=== PATIENT | female | born 1950 | race Caucasian/White ===

== ENCOUNTER → 2019-02-07 15:06 | Outpatient (CLI) | payer MEDICARE, SELFPAY ==
[2019-02-07 16:51] LABS: Alanine Aminotransferase 31 IU/L (<35); Albumin 4.8 g/dL (3.5-5.0); Albumin Globulin Ratio 1.8 (1.0-2.8); Alkaline Phosphatase 67 U/L (38-126); Aspartate Aminotransferase 33 IU/L (14-36); Bilirubin Total 0.3 mg/dL (0.2-1.3); Blood Urea Nitrogen 26 mg/dL (7-17); Calcium 10.6 mg/dL (8.4-10.2); Carbon Dioxide 26 mmol/L (22-32); Chloride 99 mmol/L (98-107); Estimated Glomerular Filt Rate 40.9 mL/min (>60); Globulin 2.6 g/dL (1.7-4.1); Glucose 142 mg/dL (80-110); HEMOLYSIS < 15 (0-50); Sodium 139 mmol/L (137-145); Total Protein 7.4 g/dL (6.3-8.2)
== END ==
PROVIDERS: Family Provider Nurse Practitioner; PCP Nurse Practitioner; Visit Provider Internal Medicine
DX: R94.4 Abnormal results of kidney function studies (principal)
CPT/HCPCS: 36415; 80053

== ENCOUNTER → 2019-07-03 06:13 | Outpatient (ROUT) | payer MEDICARE, SELFPAY ==
[2019-07-03 07:04] LABS: BUN Creatinine Ratio 18.2 (6-22); Blood Urea Nitrogen 24 mg/dL (7-17); Calcium 9.8 mg/dL (8.4-10.2); Carbon Dioxide 26 mmol/L (22-32); Chloride 101 mmol/L (98-107); Glucose 128 mg/dL (80-110); HEMOLYSIS < 15 (0-50); Sodium 137 mmol/L (137-145)
[2019-07-03 07:11] LABS: Hemoglobin A1C% w Est Avg Glu 6.4 % (4.0-6.0)
[2019-07-03 07:21] LABS: Creatinine Urine Random 107.1 mg/dL
[2019-07-03 07:24] LABS: Cholesterol 169 mg/dL (140-199); HDL Cholesterol 49 mg/dL (40-60); LDL Cholesterol Calculated 82 mg/dL (<100); Triglycerides 191 mg/dL (35-150)
[2019-07-03 07:26] LABS: Microalbumin Urine Random 1.4 mg/dL (0-1.6)
[2019-07-03 07:35] LABS: TSH w/ Reflex to FT4 2.44 uIU/mL (0.47-4.68)
== END ==
PROVIDERS: Family Provider Nurse Practitioner; PCP Nurse Practitioner; Visit Provider Internal Medicine
DX: I10 Essential (primary) hypertension (principal); E11.9 Type 2 diabetes mellitus without complications; E03.9 Hypothyroidism, unspecified
CPT/HCPCS: 36415; 80048; 80061; 82043; 82570; 83036; 84443

== ENCOUNTER → 2019-09-22 12:00 | Outpatient (CLI) | payer MEDICARE, SELFPAY ==
[2019-09-23 21:54] LABS: COVID19 Sendout Not Detected (Not Detect)
== END ==
PROVIDERS: Family Provider Nurse Practitioner; PCP Nurse Practitioner; Visit Provider Physician Assistant
DX: Z11.59 Encounter for screening for other viral diseases (principal)
CPT/HCPCS: 87635

== ENCOUNTER 2019-09-25 09:12 | Day surgery (SDC) | payer MEDICARE, SELFPAY ==
--- NOTE | 2019-09-25 07:16 | PM.PREOP ---
Pre-operative Note COVID-19 COVID-19 status: Negative Interval Note History & Physical reviewed/Exam performed by Physician: Yes Changes to H&P: No H&P completed within 30 days and has changed as indicated here:: Fasting glucose today 125.
--- NOTE | 2019-09-25 07:18 | P.OP_ITS ---
Operative Date/Time/Diagnoses Date of procedure: 09/25/19 Time of procedure: 10:45 Procedure & Clinicians Procedure: Preoperative diagnoses: 1. Right nuclear sclerotic cataract 2. Astigmatism which is to be corrected with a toric intraocular lens implant. 3. Diabetes. 4. Glaucoma 5. Morbid obesity. Postoperative diagnoses: 1. Cataract removal with phacoemulsification with toric posterior chamber intraocular lens implant placed. Procedure: Phacoemulsification with posterior chamber toric intraocular lens implant. Surgeon: Jennifer Stoddard MD Complications: None Specimen: None Implant: [id number] [place] 090 Blood loss: None Anesthesia: Retrobulbar with monitored standby Description of procedure: Patient presents with a complaint of decreased vision due to cataract which is affecting activities of daily living. She has had a complicated course due to irregular cornea and has had corneal consultation to keratoconus. This was negative. She wants to proceed with cataract surgeries that she is unable to do her current work to poor visual q uality both distance and near. She also has glaucoma takes drops and declines additional glaucoma surgery at this. The patient wants surgery to improve vision and astigmatism. A toric intra-ocular lens with distance target is chosen that she understands there still be variability in the results. The patient was taken to the operating room and proparacaine drops placed. Indelible ink sheth were placed at the 90 and 180 degree meridian. The patient was placed on the operating room table and given IV sedation. A retrobulbar block insert consisting of 6 cc of 2% xylocaine without epinephrine mixed half and half with 0.5% Marcaine with 1 cc of hyaluronidase added is placed between the medial and lateral 1/3 of the inferior orbital rim. The eye is manually massaged for 30 sec, prepped using Betadine solution, and draped in the usual sterile fashion. Temporal approach was made, a 1 mm side-port incision was made 90? from the proposed corneal wound. Phenylephrine 1.5% mixed with 1% xylocaine 0.2 cc was placed into the anterior chamber. Viscoat followed by Nainon was then placed. A 2.6 mm clear incision with a 2.6 mm blade was placed at the 170 degree meridian. A 360 degree capsulorrhexis style capsulotomy was then performed with a cystitome needle on a Healon. Hydrodelineation and hydrodissection were performed. The phacoemulsification unit is introduced, and sculpting used to groove the central lens. It is then removed in chopping mode. Epi nucleus is removed with epinuclear mode and irrigation aspiration was used to remove the peripheral cortex. The posterior capsule is polished. The intraocular lens is selected, inspected, power confirmed, and placed in the posterior chamber at the desired meridian. The pupil was not constricted. The wound was stromally hyd rated and tested for leaks, there was none and it was left sutureless. Vigamox 0.1 cc was placed into the anterior chamber. Kenalog 0.2 cc was placed in the superior subconjunctival space. A drop of antibiotic and was placed and the eye was patched and shielded. The patient was stable and returned to the recovery room in excellent condition. Dictated by: Jennifer Stoddard MD Copy to: [facility] Same procedure as scheduled: Yes
[2019-09-25 09:29] VITALS: BP 153/87; PULSE 80; RESP 18; TEMP 35.8; O2SAT 96; BMI 39.0
[2019-09-25] MEDS: CATARACT EYE COMPOUND (10 DROPS/SYRINGE) 3 DROPS EYE-OP (09:46)
[2019-09-25] MEDS: PROPARACAINE 0.5% OPHTH SOL 2 DROPS EYE-OP ×2 (09:46→10:33)
[2019-09-25 09:58] VITALS: BMI 39.0
[2019-09-25] MEDS: ERYTHROMYCIN OPHTH 1 GM OINT 1 APPLIC EYE-RIGHT (10:58)
[2019-09-25] MEDS: CHONDROIDTIN/SOD HYALURONATE 1.05 ML SYRINGE INTRAOCULA (10:58)
[2019-09-25] MEDS: HYALURONATE SODIUM 10 MG/ML SYRINGE INJ (10:59)
[2019-09-25] MEDS: MOXIFLOXACIN INJ 5 MG/ML VIAL EYE-OP (10:59)
[2019-09-25] MEDS: BALANCED SALT IRRIG SOLN NO.2 500 ML, EPINEPHrine 1 MG IRR (11:00)
[2019-09-25] MEDS: TRIAMCINOLONE 50 MG/5 ML VIAL INJ (11:00)
[2019-09-25] MEDS: PHENYLEPHRINE/LIDOCAINE VIAL (OR) 0.2 ML EYE-OP (11:00)
[2019-09-25] MEDS: LIDOCAINE 2% 4 ML, BUPIVACAINE 0.5% (PF) 4 ML, HYALURONIDASE 150 UNIT INJ (11:00)
[2019-09-25 11:25] VITALS: BP 123/74; PULSE 65; RESP 16; TEMP 35.9; O2SAT 95
--- NOTE | 2019-09-25 15:54 | SUR.PHASEII ---
1150-Pt dcd via wc in stable condition to curbside in good spirits and no c\o
== END 2019-09-25 11:50 | disposition home or self-care (01) ==
PROVIDERS: Family Provider Nurse Practitioner; PCP Nurse Practitioner; Referring Provider Ophthalmology; Visit Provider Ophthalmology
PROC: (CPT 66984; principal; 2019-09-25 10:45)
DX: H25.11 Age-related nuclear cataract, right eye (principal); H52.201 Unspecified astigmatism, right eye; H04.203 Unspecified epiphora, bilateral; E11.9 Type 2 diabetes mellitus without complications; H40.9 Unspecified glaucoma; E66.01 Morbid (severe) obesity due to excess calories; Z79.84 Long term (current) use of oral hypoglycemic drugs
CPT/HCPCS: 66984; J0171; J2250; J3010; J3301; J3470; V2787

== ENCOUNTER → 2019-10-06 14:38 | Outpatient (CLI) | payer MEDICARE, SELFPAY ==
[2019-10-07 11:16] LABS: COVID19 Sendout Not Detected (Not Detect)
== END ==
PROVIDERS: Family Provider Nurse Practitioner; PCP Nurse Practitioner; Visit Provider Nurse Practitioner
DX: Z11.59 Encounter for screening for other viral diseases (principal)
CPT/HCPCS: 87635

== ENCOUNTER 2019-10-09 09:18 | Day surgery (SDC) | payer MEDICARE, SELFPAY ==
--- NOTE | 2019-10-08 18:47 | PM.PREOP ---
Pre-operative Note COVID-19 COVID-19 status: Negative Interval Note History & Physical reviewed/Exam performed by Physician: Yes Changes to H&P: No H&P completed within 30 days and has changed as indicated here:: Fasting blood glucose checked and is 119.
--- NOTE | 2019-10-09 07:25 | PM.OP.1 ---
Operative Date/Time/Diagnoses Date of procedure: 10/09/19 Time of procedure: 10:45 Procedure & Clinicians Procedure: Preoperative diagnoses: 1. Significant left nuclear sclerotic cataract 2. Astigmatism which is to be corrected with a toric intraocular lens implant. 3. Diabetes without retinopathy 4. Uncontrolled glaucoma on medications. 5. Obesity Postoperative diagnoses: 1. Cataract removal with phacoemulsification with toric posterior chamber intraocular lens implant placed. Procedure: Phacoemulsification with posterior chamber toric intraocular lens implant. Surgeon: Jennifer Stoddard MD Complications: None Specimen: None Implant: [id number] [place] 090 Blood loss: None Anesthesia: Retrobulbar with monitored standby Description of procedure: Patient presents with a complaint of decreased vision due to cataract which is affecting activities of daily living. The patient wants surgery to improve vision and astigmatism as she is unable to see clearly enough to work or read. She has had successful right cataract surgery also with high astigmatism. She has also had preoperative corneal consultation without evidence keratoconus. She understands are still risk of residual prescription due to her unusual corneal shape. She understands extra precaution string COVID-19. The patient was taken to the operating room and proparacaine drops placed. Indelible ink sheth were placed at the 90 and 180 degree meridian. The patient was placed on the operating room table and given IV sedation. A retrobulbar block insert consisting of 6 cc of 2% xylocaine without epinephrine mixed half and half with 0.5% Marcaine with 1 cc of hyaluronidase added is placed between the medial and lateral 1/3 of the inferior orbital rim. The eye is manually massaged for 30 sec, prepped using Betadine solution, and draped in the usual sterile fashion. Temporal approach was made, a 1 mm side-port incision was made 90? from the proposed corneal wound. Phenylephrine 1.5% mixed with 1% xylocaine 0.2 cc was placed into the anterior chamber. Viscoat followed by Surya was then placed. A 2.6 mm clear incision with a 2.6 mm blade was placed at the 170 degree meridian. A 360 degree capsulorrhexis style capsulotomy was then performed with a cystitome needle on a Healon. Hydrodelineation and hydrodissection were performed. The phacoemulsification unit is introduced, and sculpting used to groove the central lens. It is then removed in chopping mode. Epi nucleus is removed with epinuclear mode and irrigation aspiration was used to remove the peripheral cortex. The posterior capsule is polished. The intraocular lens is selected, inspected, power confirmed, and placed in the posterior chamber at the desired meridian of 90?. The pupil was not constricted. The wound was stromally hydrated and tested for leaks, there was none and it was left sutureless. Vigamox 0.1 cc was placed into the anterior chamber. Kenalog 0.2 cc was placed in the superior subconjunctival space. A drop of antibiotic and was placed and the eye was patched and shielded. The patient was stable and returned to the recovery room in excellent condition. Dictated by: Jennifer Stoddard MD Copy to: [facility] Same procedure as scheduled: Yes
[2019-10-09] MEDS: PROPARACAINE 0.5% OPHTH SOL 2 DROPS EYE-OP (09:46)
[2019-10-09] MEDS: CATARACT EYE COMPOUND (10 DROPS/SYRINGE) 3 DROPS EYE-OP (09:46)
[2019-10-09 09:47] VITALS: BP 146/80; PULSE 62; RESP 16; TEMP 36.6; O2SAT 98
[2019-10-09] MEDS: MOXIFLOXACIN INJ 5 MG/ML VIAL EYE-OP (11:16)
[2019-10-09] MEDS: ERYTHROMYCIN OPHTH 1 GM OINT 1 APPLIC EYE-LEFT (11:16)
[2019-10-09] MEDS: CHONDROIDTIN/SOD HYALURONATE 1.05 ML SYRINGE INTRAOCULA (11:16)
[2019-10-09] MEDS: HYALURONATE SODIUM 10 MG/ML SYRINGE INJ (11:16)
[2019-10-09] MEDS: TRIAMCINOLONE 50 MG/5 ML VIAL INJ (11:17)
[2019-10-09] MEDS: PHENYLEPHRINE/LIDOCAINE VIAL (OR) 0.2 ML EYE-OP (11:17)
[2019-10-09] MEDS: BALANCED SALT IRRIG SOLN NO.2 500 ML, EPINEPHrine 1 MG IRR (11:18)
[2019-10-09] MEDS: LIDOCAINE 2% 4 ML, BUPIVACAINE 0.5% (PF) 4 ML, HYALURONIDASE 150 UNIT INJ (11:19)
[2019-10-09 11:45] VITALS: BP 150/74; PULSE 66; RESP 17; TEMP 36; O2SAT 97
== END 2019-10-09 11:59 | disposition home or self-care (01) ==
PROVIDERS: Family Provider Nurse Practitioner; PCP Nurse Practitioner; Referring Provider Nurse Practitioner; Visit Provider Ophthalmology
PROC: (CPT 66984; principal; 2019-10-09 10:45)
DX: H25.12 Age-related nuclear cataract, left eye (principal); H52.202 Unspecified astigmatism, left eye; E11.9 Type 2 diabetes mellitus without complications; H40.9 Unspecified glaucoma; E66.9 Obesity, unspecified
CPT/HCPCS: 66984; J0171; J2704; J3301; J3470; V2787

== ENCOUNTER → 2022-08-04 13:51 | Outpatient (CLI) | payer MEDICARE, SELFPAY ==
--- NOTE | 2022-08-04 | DI.RAD.S_ITS ---
PROCEDURE: XR CHEST 2V INDICATIONS: Cough, unspecified TECHNIQUE: 2 views of the chest were acquired. COMPARISON: [facility], , CHEST 1 VIEW, 05/17/2015, 17:32. FINDINGS: Surgical changes and devices: None. Lungs and pleura: Lungs are clear. No pleural effusions or pneumothorax. Mediastinum: Mediastinal contours are normal. Heart size is normal. Bones and chest wall: No suspicious bony abnormalities. Soft tissues appear unremarkable. IMPRESSION: No acute cardiopulmonary findings Approved by: Drew Marvin M.D. on 08/04/2022 at 17:40
== END ==
PROVIDERS: Family Provider Nurse Practitioner; PCP Internal Medicine; Referring Provider Internal Medicine; Visit Provider Internal Medicine
DX: R05.9 Cough, unspecified (principal)
CPT/HCPCS: 71046

== ENCOUNTER → 2022-12-07 11:10 | Outpatient (CLI) | payer MEDICARE, SELFPAY ==
--- NOTE | 2022-12-07 | DI.MG.S_ITS ---
BILATERAL DIGITAL SCREENING MAMMOGRAM 3D/2D WITH CAD: 12/07/2022 CLINICAL: Routine screening. Comparison is made to exams dated: 09/08/2014 mammogram and 06/13/2012 mammogram - [facility]. There are scattered areas of fibroglandular density in both breasts (category b / 25%-50% glandular tissue). Current study was also evaluated with a Computer Aided Detection (CAD) system. No significant masses, calcifications, or other findings are seen in either breast. There has been no significant interval change. IMPRESSION: NEGATIVE There is no mammographic evidence of malignancy. A 1 year screening mammogram is recommended. Based on the Tyrer Cuzick model (a risk assessment model) the patient's lifetime risk is 4.6% and her 10 year risk is 3.1%. According to the ACR, ACS, and NCCN guidelines, an annual breast MRI exam along with mammogram is recommended if the patient's lifetime risk is 20% or greater. This exam was interpreted at Station ID: [id number]. NOTE: For mammograms, a report in lay terms will be sent to the patient. Approximately 15% of breast malignancies will not be visualized mammographically. In the management of a palpable breast mass, a negative mammogram must not discourage biopsy of a clinically suspicious lesion. Electronically Signed By: Shai donahue/lily:12/07/2022 17:40:04 letter sent: Normal Exam ACR BI-RADS Category 1: Negative 3341F
== END ==
PROVIDERS: Family Provider Nurse Practitioner; PCP Internal Medicine; Referring Provider Internal Medicine; Visit Provider Internal Medicine
DX: Z12.31 Encounter for screening mammogram for malignant neoplasm of breast (principal)
CPT/HCPCS: 77063; 77067

== ENCOUNTER → 2022-12-17 10:45 | Outpatient (CLI) | payer MEDICARE, SELFPAY ==
[2022-12-17 11:09] LABS: Add Manual Diff / Slide Review NO; Basophils Absolute Auto 0 /uL (0-100); Basophils Percent Auto 0.7 % (0-2); Eosinophils Absolute Auto 200 /uL (0-450); Eosinophils Percent Auto 3.5 % (2-4); Hematocrit 35.5 % (36-46); Lymphocytes Absolute Auto 1100 /uL (1100-4500); Lymphocytes Percent Auto 16.5 % (25-40); Mean Corpuscular HGB Conc 33.7 % (30-36); Mean Corpuscular Hemoglobin 30.2 PG (26-34); Mean Corpuscular Volume 89.6 fL (80-100); Monocytes Absolute Auto 600 /uL (0-900); Monocytes Percent Auto 8.4 % (3-14); Neutrophils Absolute Auto 4900 /uL (1500-7000); Neutrophils Percent Auto 70.9 % (50-75); Platelet Count 256 X10^3/uL (150-400); Red Blood Cell Count 3.97 X10^6/uL (4.0-5.2); Red Cell Distribution Width 14.4 % (11.6-14.8); White Blood Cell Count 6.9 X10^3/uL (4.5-11.0)
[2022-12-17 11:31] LABS: BUN Creatinine Ratio 17.1 (6-22); Blood Urea Nitrogen 20 mg/dL (7-17); Calcium 10.4 mg/dL (8.4-10.2); Carbon Dioxide 25 mmol/L (22-32); Chloride 99 mmol/L (98-107); Estimated Glomerular Filt Rate 50 mL/min (>60); Glucose 144 mg/dL (80-110); HEMOLYSIS 38 (0-50); Potassium 4.5 mmol/L (3.4-5.1); Sodium 136 mmol/L (137-145)
[2022-12-17 13:00] LABS: Appearance Urine UA CLEAR; Bilirubin Urine UA NEGATIVE (NEGATIVE); Color Urine UA YELLOW; Glucose Urine UA NEGATIVE (Negative); Ketones Urine UA NEGATIVE (NEGATIVE); Leukocyte Esterase Urine UA NEGATIVE (NEGATIVE); Nitrite Urine UA NEGATIVE (Negative); Occult Blood Urine UA NEGATIVE (Negative); Protein Urine UA NEGATIVE (Negative); Urobilinogen Urine UA 0.2 E.U./dL (0.2)
[2022-12-17 13:02] LABS: pH Urine UA 6.5 (4.5-8.0)
[2022-12-17 13:14] LABS: Bacteria Urine None Seen; Culture Indicated Urine Cult Not Indicated; RBC Urine None Seen (0-5/HPF); Squamous Epithelial Cell Urine 0-1 /HPF (0-5/HPF); WBC Urine None Seen (0-5/HPF)
== END ==
PROVIDERS: Family Provider Nurse Practitioner; PCP Internal Medicine; Referring Provider Orthopaedic Surgery; Visit Provider Orthopaedic Surgery
DX: Z01.818 Encounter for other preprocedural examination (principal); N39.0 Urinary tract infection, site not specified; Z01.812 Encounter for preprocedural laboratory examination
CPT/HCPCS: 36415; 80048; 81001; 85025; 93005

== ENCOUNTER → 2022-12-21 14:22 | Outpatient (CLI) | payer MEDICARE, SELFPAY ==
--- NOTE | 2022-12-21 | DI.CT.S_ITS ---
PROCEDURE: CT UE LT WO CON INDICATIONS: PRIMARY OSTEOARTHRITIS - left TECHNIQUE: Noncontrast 1-1.5 mm thick sections acquired from the acromioclavicular joint to the inferior scapula, with coronal and sagittal reformatting. COMPARISON: None. FINDINGS: Image quality: Excellent. There is severe osteoarthritic degenerative change involving the patient's left glenohumeral joint. There is a small loose body in the superior shoulder joint. There is moderate AC joint degenerative change present. No acute osseous abnormality is seen. A moderate size shoulder joint effusion is present. There are some 1-2 millimeter indeterminate pulmonary nodules within the visualized portions of the patient's left lung. If the patient has a history of smoking a CT of the chest without contrast may be of further clinical value. Impression: 1. Severe osteoarthritic type degenerative change involving the left glenohumeral joint. 2. Small loose body in the is superior glenohumeral joint. 3. Moderate AC joint degenerative change. 4. Moderate shoulder joint effusion. 5. Two small 1-2 millimeter indeterminate pulmonary nodule within the patient's left lung. If the patient has a history of smoking a noncontrast chest CT may be of further clinical value. Dictated by: Geronimo Malone M.D. on 12/21/2022 at 15:54 Approved by: Geronimo Malone M.D. on 12/21/2022 at 16:00
== END ==
PROVIDERS: Family Provider Nurse Practitioner; PCP Internal Medicine; Referring Provider Orthopaedic Surgery; Visit Provider Orthopaedic Surgery
DX: M19.012 Primary osteoarthritis, left shoulder (principal); M24.012 Loose body in left shoulder; M25.412 Effusion, left shoulder; R91.8 Other nonspecific abnormal finding of lung field
CPT/HCPCS: 73200

== ENCOUNTER 2023-02-08 06:27 | Inpatient (IN) | payer MEDICARE, SELFPAY ==
[2023-01-31 09:31] VITALS: BMI 39.4
[2023-02-08] VITALS (8 sets, daily range): BP systolic 119–149; BP diastolic 73–78; PULSE 72–85; RESP 15–22; TEMP 36.1–36.4; O2SAT 92–100; BMI 39.4
--- NOTE | 2023-02-08 07:22 | PM.HP.1 ---
History of Present Illness History of Present Illness Date Patient Seen: 02/08/23 Time Patient Seen: 07:22 Chief complaint: INPT Narrative: This is a pleasant 72-year-old female here for left shoulder glenohumeral arthritis. Since I last saw her on 12/15 she has had worsening of her pain. More difficulty sleeping. Denies any distal numbness or tingling. No changes in her health status. [facility] Medical History (Updated 01/31/23 @ 10:18 by Purnima Adkins RN) Eczema Osteoarthritis Kidney disease Diabetes (2013) Acid reflux HLD (hyperlipidemia) HTN (hypertension) Dry eyes Seasonal allergies Neuropathy Surgical History (Updated 01/31/23 @ 10:18 by Purnima Adkins RN) Hx of hemorrhoidectomy (2001) S/P left unicompartmental knee replacement (2010) History of total right hip replacement (2007) Hx of tonsillectomy Hx of prior ablation treatment Hx of dilation and curettage History of Hx of bilateral cataract extraction Social History household members: spouse Smoking Status: Former smoker alcohol intake: never Meds Home Medications and Allergies Home Medications Medication Instructions Recorded Confirmed Type cetirizine 10 mg tablet 10 mg PO PRN PRN Seasonal 06/29/11 02/08/23 History allergies ##0 levothyroxine 25 mcg tablet 25 mcg PO QAM #90 tabs 07/21/16 02/08/23 Rx metoprolol succinate 50 mg 50 mg PO QDAY #90 tabs 07/21/16 02/08/23 Rx tablet,extended release 24 hr (Toprol XL) pseudoephedrine HCl 120 mg 120 mg PO Q12HP PRN Allergy 07/21/16 01/31/23 History tablet,extended release (Sudafed Symptoms ##0 12 Hour) glipizide 5 mg tablet 5 mg PO DAILY 09/25/19 02/08/23 History hydrochlorothiazide 12.5 mg tablet 12.5 mg PO QAM 09/25/19 02/08/23 History clobetasol 0.05 % topical ointment 1 deion topical BID PRN Eczema 01/31/23 01/31/23 History losartan 25 mg tablet 25 mg PO DAILY 01/31/23 02/08/23 History metformin 500 mg tablet 1,000 mg PO BID 01/31/23 02/08/23 History rosuvastatin 10 mg tablet (Crestor) 5 mg PO BEDTIME 01/31/23 02/08/23 History Allergies Allergy/AdvReac Type Severity Reaction Status Date / Time adhesive Allergy Severe Blisters Verified 02/08/23 07:00 cephalexin Allergy Intermediate RASH Verified 02/08/23 07:00 Sulfa (Sulfonamide Allergy Intermediate Rash Verified 02/08/23 07:00 Antibiotics) atorvastatin Allergy Mild RASH Verified 02/08/23 07:00 meloxicam Allergy Mild ITCHY Verified 02/08/23 07:00 monosodium glutamate AdvReac Mild HEADACHE Verified 02/08/23 07:00 verapamil AdvReac Mild BILAT Verified 02/08/23 07:00 ANKLE EDEMA NASAL STEROID SPRAY Allergy Mild EPISTAXIS Uncoded 02/08/23 07:00 Review of Systems Review of Systems ROS: Yes All systems reviewed with the patient and are negative except as otherwise documented Exam Narrative Exam Narrative: HEENT: Head atraumatic eyes anicteric moist mucous membranes Cardiovascular: Palpable peripheral pulses extremities are warm and well perfused Respiratory: Breathing comfortably on room air Psychiatric: Appropriate mood and affect Neuro: No acute deficits Musculoskeletal: Exam of the left upper extremity demonstrates no lesions. Forward elevation 145, external rotation 45, 5/5 strength throughout. Sensation intact to light touch in median, radial, ulnar, axillary nerve distributions. Assessment & Plan Assessment & Plan narrative: Assessment: 72-year-old female with left glenohumeral arthritis Plan: Patient is here for anatomic total shoulder arthroplasty. Risks and benefits of surgery were discussed again including the risk of infection, damage to internal structures, bleeding, nerve injury, instability, need for revision surgery, blood clots, anesthesia and . No guarantees were made regarding outcomes. Patient expressed understanding and accepted these risks and wished to go forward with surgery and consent was signed. Her left shoulder was marked with my initials.
[2023-02-08] MEDS: ACETAMINOPHEN 325 MG TABLET 975 MG PO (07:30)
--- NOTE | 2023-02-08 08:00 | DI.RAD.S_ITS ---
PROCEDURE: XR SHOULDER RT MIN 2V INDICATIONS: POST OP LEFT TOTAL SHOULDER TECHNIQUE: 1 views of the shoulder were acquired. COMPARISON: None. FINDINGS: Bones: No fractures or dislocations. Postoperative changes from left total shoulder arthroplasty. The hardware appears intact and in expected location. No suspicious bony lesions. Visualized ribs appear intact. Soft tissues: No suspicious soft tissue calcifications. Overlying postsurgical changes are noted. IMPRESSION: Expected appearance of left shoulder arthroplasty. Dictated by: Elgin Richards M.D. on 02/08/2023 at 11:39 Approved by: Elgin Richards M.D. on 02/08/2023 at 11:40
[2023-02-08] MEDS: CLINDAMYCIN 900 MG/50 ML PIGGYBACK 50 MG IV (08:17)
--- NOTE | 2023-02-08 08:17 | SUR.PREOP ---
Block start time 0740[] . Monitoring initiated and maintained throughout procedure. Oxygen and medications given per anesthesiologist instructions. Patient remained stable throughout procedure, no adverse reactions noted. Block end time [0800].
--- NOTE | 2023-02-08 08:50 | SUR.OPER ---
Beach chair with [place] shoulder positioner. Lower body on padded OR bed. Head in foam padded head cradle, secured with straps. Non-operative arm secured <90 degrees abduction. Pillow under knees. Safety belt at thigh. Cloth tape over blanket over lower legs.operative arm draped free
[2023-02-08] MEDS: BUPIVACAINE 0.25% (PF) 60 ML, EPINEPHrine 0.3 MG INJ (08:56)
[2023-02-08] MEDS: TRANEXAMIC ACID 1,000 MG VIAL 1000 MG INJ (08:58)
--- NOTE | 2023-02-08 10:16 | P.OP_ITS ---
Operative Date/Time/Diagnoses Date of procedure: 02/08/23 Time of procedure: 10:16 Pre-op diagnosis: Left shoulder glenohumeral arthritis Post-op diagnosis: same Procedure & Clinicians Procedure: Left anatomic total shoulder arthroplasty Same procedure as scheduled: Yes Indications: Indications: This is a 72-year-old female who has primary osteoarthritis of the glenohumeral joint. Symptoms have been present for years, insidious onset. Patient has failed conservative therapy including physical therapy, anti- inflammatories and activity modification. After extensive discussion in clinic, they wished to go forward with surgery. Risks and benefits were described including the risk of infection, bleeding, damage to internal structures including nerves. We also discussed the risk of failure of surgery and the need for revision surgery as well as the risk of anesthesia. The patient expressed understanding with these risks and wished to go forward with surgery. Surgeon: Berhane Capone Diversional Therapist: Reina Kong Anesthesia Type: General Operative Notes Findings: Findings: Osteoarthritis of the glenoid and humeral head as noted on preoperative imaging and under direct visualization Closure Type: primary Specimen(s): none sent Prosthetic devices, grafts, tissues, transplants, or devices: [employer]plants CortiLoc Pegged Glenoid UHMWPE small 35 Simpliciti Nucleus Size 1 Simpliciti CoCr head size 43 Estimated Blood Loss (mL): 50 Blood products transfused: none Procedure in detail: Operative note: Patient was seen in the preoperative holding unit. The correct left shoulder was identified and marked with my initials. Again we discussed the risks and benefits of surgery and they wished to go forward with surgery. The patient was brought back to the operating room and placed supine on the operating table. She underwent smooth endotracheal intubation. All prominences were padded and they were placed into the beach chair position. Intravenous antibiotics were given. The left shoulder was then prepped with the standard sterile preparation and draping. A time-out was then performed in my initials were again identified on the correct shoulder. 1 g of IV tranexamic acid was given. A standard deltopectoral incision was made. Skin flaps were made. The cephalic vein was identified and retracted laterally. This was protected throughout the remainder of the case. Sharp dissection was made along the deltoid, subacromial and subcoracoid space to release adhesions. The conjoined tendon was identified and the axillary nerve was palpated and continuous using the tug test. It was protected throughout the remainder of the case. A brown retractor was placed underneath the deltoid muscle and a darach retractor underneath the conjoint tendon. The anterior circumflex artery and associated veins on the lower border of the subscapularis were identified and tied off using 0-Vicryl. The biceps tendon was identified in the bicipital groove. This was released from its sheath, and taken from its origin on the glenoid and tied into the pectoralis tendon for a solid tenodesis. We then began a subscapularis peel. The subscapularis was tagged with an Ethibond suture. A 360 degree circumferential release of the subscapularis was performed with protection of the axillary nerve. The coracohumeral ligament was released at the base of the coracoid. The coracoacromial ligament was left intact. The shoulder was then dislocated. Osteophytes were removed using combination of rongeur and osteotome. The rotator cuff was noted to be intact. Using an oscillating saw a conservative humeral head cut was made using the patient's blackfeet version. The head was measured and a guide for size 43 simpliciti humeral head was used to drill a central hole followed by impaction. Attention was then turned to the glenoid. After retracting the humeral head posteriorly, release of the capsule and labrum was performed. Central guidewire was placed. The glenoid was then reamed followed by a central drill over the guidewire. Guidewire was removed and using a guide, peripheral holes were drilled. At this point dilute Betadine wash was performed for 2 minutes. M edium viscosity cement was mixed and the drill holes were completely dried. An all polyethylene pegged glenoid was then selected, and cemented into the glenoid. Turning back to the humerus, the humeral head was delivered and 3 seperate Nice Loupes were passed through drill holes through the lesser tuberosity into the bicipital groove. The nucleus was then impacted into the humerus and a size 43 stemless humeral head was placed. The shoulder was then reduced and again brought through range of motion and was felt to be stable. The interval was then closed using #2 ethibond. The subscapularis was then repaired using a modified racking hitch with niece loupes. The deltopectoral interval was then closed with #2 Ethibond. The skin was closed with 2-0 Vicryl and Monocryl followed by Aquacel dressing. Patient was awoken from anesthesia and brought back to the postoperative recovery unit without issue. They were placed into a sling. Assisting participation: This operation could not have been safely performed (without compromising the technical results or length of the procedure) without the assistance of a skilled surgical elastic knitter. The surgical elastic knitter was medically necessary for proper positioning, retraction and manipulation of instruments, proper exposure, graft prep, and manipulation of tissue. Post-operative Condition: stable Disposition: PACU Plan for aftercare: Postoperative instructions: Sling to remain on for 6 weeks. No external rot ation past neutral for 6 weeks. Okay for sling to come off for shower and gentle pendulum exercises. Okay to shower over the Aquacel dressing. If any water gets underneath the dressing, remove the dressing. First postoperative visit in 2 weeks.
[2023-02-08] MEDS: ONDANSETRON 4 MG/2 ML INJ IV (11:18)
[2023-02-08] MEDS: hydrOXYzine 50 MG/ML INJ 25 MG IM (12:15)
== END 2023-02-08 12:57 | disposition home or self-care (01) | DRG 483 ==
PROVIDERS: Admitting Provider Orthopaedic Surgery; Family Provider Nurse Practitioner; PCP Internal Medicine; Referring Provider Orthopaedic Surgery; Visit Provider Orthopaedic Surgery
PROC: 0RRK0JZ Replacement of Left Shoulder Joint with Synthetic Substitute, Open Approach (ICD-10-PCS; CPT 23472; principal; 2023-02-08 07:45)
DX: M19.012 Primary osteoarthritis, left shoulder (principal); Z87.891 Personal history of nicotine dependence
CPT/HCPCS: 64450; 73030; 82962; C1776; J0171; J0330; J1100; J1885; J2250; J2405; J2704; J3010; J3410

== ENCOUNTER → 2023-09-28 13:51 | Outpatient (CLI) | payer MEDICARE, SELFPAY ==
--- NOTE | 2023-09-28 13:55 | DI.RAD.S_ITS ---
PROCEDURE: XR FOOT RT MIN 3V INDICATIONS: Pain in right foot wb views TECHNIQUE: 3 views of the foot were acquired. COMPARISON: None. FINDINGS: Bones: No fractures or dislocations. Mild hallux valgus angulation of the 1st MTP with medial bunion formation. Mild diffuse interphalangeal and moderate 1st MTP joint degeneration. Mild plantar and posterior calcaneal enthesophytes. No suspicious bony lesions. Soft tissues: No tibiotalar joint effusion. Achilles tendon appears normal. IMPRESSION: 1. No acute osseous abnormalities. 2. Hallux valgus angulation of the 1st MTP with medial bunion formation. 3. Mild diffuse interphalangeal and moderate 1st MTP joint degeneration. Dictated by: Elgin Richards M.D. on 09/29/2023 at 14:36 Approved by: Elgin Richards M.D. on 09/29/2023 at 14:37
[2023-09-28 15:13] LABS: Add Manual Diff / Slide Review NO; Basophils Absolute Auto 100 /uL (0-100); Basophils Percent Auto 0.8 % (0-2); Eosinophils Absolute Auto 200 /uL (0-450); Eosinophils Percent Auto 2.3 % (2-4); Hematocrit 33.9 % (36-46); Hemoglobin 11.4 g/dL (12.0-16.0); Lymphocytes Absolute Auto 1200 /uL (1100-4500); Lymphocytes Percent Auto 17.7 % (25-40); Mean Corpuscular HGB Conc 33.5 % (30-36); Mean Corpuscular Hemoglobin 30.1 PG (26-34); Monocytes Absolute Auto 500 /uL (0-900); Monocytes Percent Auto 7.4 % (3-14); Neutrophils Absolute Auto 4900 /uL (1500-7000); Neutrophils Percent Auto 71.8 % (50-75); Platelet Count 248 X10^3/uL (150-400); Red Blood Cell Count 3.77 X10^6/uL (4.0-5.2); Red Cell Distribution Width 14.8 % (11.6-14.8); White Blood Cell Count 6.8 X10^3/uL (4.5-11.0)
[2023-09-28 15:30] LABS: Erythrocyte Sedimentation Rate 36 MM/HR (0-20)
[2023-09-28 15:35] LABS: C-Reactive Protein Quant 0.8 mg/dL (<1.0); Uric Acid 7.6 mg/dL (2.5-6.2)
== END ==
LOC: LAB 13:53
PROVIDERS: Family Provider Nurse Practitioner; PCP Internal Medicine; Referring Provider Podiatrist Foot & Ankle Surgery; Visit Provider Podiatrist Foot & Ankle Surgery
DX: L03.115 Cellulitis of right lower limb (principal); M79.671 Pain in right foot; M21.611 Bunion of right foot
CPT/HCPCS: 36415; 73630; 84550; 85025; 85651; 86140

== ENCOUNTER → 2023-10-10 11:59 | Outpatient (CLI) | payer MEDICARE, SELFPAY ==
[2023-10-10 12:43] LABS: Hematocrit 36.2 % (36-46); Hemoglobin 12.1 g/dL (12.0-16.0)
[2023-10-10 13:07] LABS: BUN Creatinine Ratio 19.7 (6-22); Blood Urea Nitrogen 25 mg/dL (7-17); Calcium 10.6 mg/dL (8.4-10.2); Carbon Dioxide 24 mmol/L (22-32); Chloride 99 mmol/L (98-107); Estimated Glomerular Filt Rate 45 mL/min (>60); Glucose 75 mg/dL (80-110); HEMOLYSIS < 15 (0-50); Potassium 4.1 mmol/L (3.4-5.1); Sodium 135 mmol/L (137-145)
[2023-10-10 14:47] LABS: Creatinine Urine Random 45.65 mg/dL; Protein (Total) Urine Random 9 mg/dL (0-12); Protein Creatinine Ratio Urine 0.19 GRAM/24H
== END ==
PROVIDERS: Family Provider Nurse Practitioner; PCP Internal Medicine; Referring Provider Student in an Organized Health Care Education/Training Program; Visit Provider Student in an Organized Health Care Education/Training Program
DX: N05.9 Unspecified nephritic syndrome with unspecified morphologic changes (principal); D70.9 Neutropenia, unspecified; D63.1 Anemia in chronic kidney disease; R80.9 Proteinuria, unspecified
CPT/HCPCS: 36415; 80048; 82570; 84156; 85014; 85018

== ENCOUNTER → 2023-11-15 13:52 | Outpatient (CLI) | payer MEDICARE, SELFPAY ==
--- NOTE | 2023-11-15 13:55 | DI.US.S_ITS ---
PROCEDURE: US RENAL COMPLETE INDICATIONS: CHRONIC KIDNEY DISEASE 3B TECHNIQUE: Real-time scanning was performed of the kidneys and bladder, with image documentation. COMPARISON: None. FINDINGS: Please note that this examination was limited due to body habitus and overlying bowel gas. Kidneys: Kidneys are normal in size. Right kidney measures 10.4 cm long; left kidney measures 10.4 cm long. Right renal cortical thickness is 1.4 cm; left renal cortical thickness is 1.2 cm. Renal cortical echotexture is normal. No hydronephrosis or nephrolithiasis. No suspicious solid mass lesions. Bladder: Pre-void bladder volume is 72 mL. Post-void residual is 0 mL. Pre-void images demonstrate no intraluminal masses or stones. On pre-void images, only the left ureteral jet is noted with color Doppler interrogation. (Of note, ureteral jets may not be detectable in up to 25% of cases due to insufficient differences in specific gravity between ureteral and bladder urine). Miscellaneous: No free pelvic fluid. IMPRESSION: 1. No sonographic evidence of hydronephrosis or urolithiasis. 2. No urinary retention. Dictated by: Jose Luis Lawler M.D. on 11/15/2023 at 17:07 Approved by: Jose Luis Lawler M.D. on 11/15/2023 at 17:09
== END ==
PROVIDERS: Family Provider Nurse Practitioner; PCP Internal Medicine; Referring Provider Student in an Organized Health Care Education/Training Program; Visit Provider Student in an Organized Health Care Education/Training Program
DX: N18.32 Chronic kidney disease, stage 3b (principal)
CPT/HCPCS: 76770

== ENCOUNTER → 2023-11-21 11:51 | Outpatient (CLI) | payer MEDICARE, SELFPAY ==
[2023-11-21 12:31] LABS: Hematocrit 35.6 % (36-46); Hemoglobin 11.9 g/dL (12.0-16.0)
[2023-11-21 12:56] LABS: BUN Creatinine Ratio 15.5 (6-22); Blood Urea Nitrogen 17 mg/dL (7-17); Calcium 10.1 mg/dL (8.4-10.2); Carbon Dioxide 22 mmol/L (22-32); Chloride 105 mmol/L (98-107); Estimated Glomerular Filt Rate 53 mL/min (>60); Glucose 141 mg/dL (80-110); HEMOLYSIS < 15 (0-50); Phosphorous 2.9 mg/dL (2.8-4.1); Potassium 4.8 mmol/L (3.4-5.1); Sodium 137 mmol/L (137-145)
[2023-11-21 13:01] LABS: Appearance Urine UA CLEAR; Bilirubin Urine UA NEGATIVE (NEGATIVE); Color Urine UA YELLOW; Glucose Urine UA NEGATIVE (Negative); Ketones Urine UA NEGATIVE (NEGATIVE); Leukocyte Esterase Urine UA NEGATIVE (NEGATIVE); Nitrite Urine UA NEGATIVE (Negative); Occult Blood Urine UA NEGATIVE (Negative); Protein Urine UA NEGATIVE (Negative); Urobilinogen Urine UA 0.2 E.U./dL (0.2); pH Urine UA 6.5 (4.5-8.0)
[2023-11-21 15:51] LABS: Creatinine Urine Random 60.64 mg/dL; Protein (Total) Urine Random 7 mg/dL (0-12); Protein Creatinine Ratio Urine 0.11 GRAM/24H
[2023-11-21 16:06] LABS: Vitamin D 25 Hydroxy (D3) 25.1 ng/mL (30.0-100.0)
== END ==
LOC: LAB 11:53
PROVIDERS: Family Provider Nurse Practitioner; PCP Internal Medicine; Referring Provider Student in an Organized Health Care Education/Training Program; Visit Provider Student in an Organized Health Care Education/Training Program
DX: E83.30 Disorder of phosphorus metabolism, unspecified (principal); N05.9 Unspecified nephritic syndrome with unspecified morphologic changes; D70.9 Neutropenia, unspecified; D63.1 Anemia in chronic kidney disease; N25.81 Secondary hyperparathyroidism of renal origin; D47.2 Monoclonal gammopathy; R80.8 Other proteinuria; N80.00 Endometriosis of the uterus, unspecified
CPT/HCPCS: 36415; 80048; 81003; 82306; 82570; 83970; 84100; 84155; 84156; 84165; 84166; 85014; 85018

== ENCOUNTER → 2024-03-12 15:05 | Outpatient (CLI) | payer MEDICARE, SELFPAY ==
--- NOTE | 2024-03-12 15:09 | DI.RAD.S_ITS ---
PROCEDURE: XR FOOT RT MIN 3V INDICATIONS: Pain in right foot TECHNIQUE: 3 views of the foot were acquired. COMPARISON: [facility], , XR FOOT RT MIN 3V, 09/28/2023, 14:10. FINDINGS: Bones: No definite acute fractures are seen. Inferior subluxation/dislocation of the 2nd PIP joint.. Mild hallux valgus angulation of the 1st MTP joint with medial bunion formation. Mild diffuse interphalangeal and moderate 1st MTP joint degeneration. Mild plantar and posterior calcaneal enthesophytes. No suspicious bony lesions. Soft tissues: No tibiotalar joint effusion. Achilles tendon appears normal. IMPRESSION: Inferior subluxation/dislocation of the 2nd PIP joint. No definite fracture is seen, however evaluation is limited secondary to resolution. Dictated by: Elgin Richards M.D. on 03/12/2024 at 20:15 Approved by: Elgin Richards M.D. on 03/12/2024 at 20:16
== END ==
LOC: RAD 15:08
PROVIDERS: Family Provider Nurse Practitioner; PCP Internal Medicine; Referring Provider Podiatrist Foot & Ankle Surgery; Visit Provider Podiatrist Foot & Ankle Surgery
DX: S93.114A Dislocation of interphalangeal joint of right lesser toe(s), initial encounter (principal); M79.671 Pain in right foot
CPT/HCPCS: 73630

== ENCOUNTER → 2024-03-15 12:44 | Outpatient (CLI) | payer MEDICARE, SELFPAY ==
--- NOTE | 2024-03-15 12:46 | DI.MRI.S_ITS ---
PROCEDURE: MR FOOT RT WO/W CON INDICATIONS: r/o osteomyelitis TECHNIQUE: Noncontrast coronal T1 spin echo and STIR, sagittal T1 spin echo with fat saturation and STIR, axial T1 spin echo and T2 fast spin echo with fat saturation. After the administration of contrast, axial/sagittal/coronal T1 spin echo with fat saturation through the right foot.. COMPARISON: None. FINDINGS: Image quality: Excellent. Bones: [id number] hallux valgus is seen. Extensive marrow edema involving proximal phalangeal shaft, 2nd middle and distal phalanges are seen with suggestion of subtle erosion involving 2nd distal phalangeal tuft. Mild contrast enhancement in the area of edema is also seen. Mild edema is also noted involving 1st metatarsal head medial periphery and show mild enhancement and overlying cortical disruption. No other area of abnormal marrow signal is seen. No acute fracture or dislocation. Soft tissues: Mild soft tissue bunion over medial aspect of 1st metatarsal head is seen. Mild soft tissue swelling and edema surrounding 2nd toe is noted without discrete drainable peripherally enhancing fluid collection. Visualized plantar foot muscles show mild edema suggestive of mild myositis. No intramuscular enhancing mass or drainable fluid collection. Extensor and flexor tendons are intact. Lisfranc ligament is intact. IMPRESSION: 1. Finding is suggestive of osteomyelitis involving 2nd proximal phalangeal shaft, 2nd middle and distal phalanges. Erosive changes are noted involving 2nd distal phalangeal tuft. Overlying soft tissue edema and swelling is seen consistent with cellulitis. No drainable abscess collection. 2. [id number] hallux valgus with edema and subcortical cystic area involving medial aspect of 1st metatarsal head and overlying soft tissue bunion. 3. No other area of abnormal marrow signal. No fracture or dislocation. Midfoot and forefoot joint osteoarthritis. 4. Mild myositis involving visualized plantar foot muscles. No discrete drainable intramuscular fluid collection. No enhancing intramuscular mass. Dictated by: Luke Dejesus M.D. on 03/16/2024 at 13:02 Approved by: Luke Dejesus M.D. on 03/16/2024 at 13:23
== END ==
PROVIDERS: Family Provider Nurse Practitioner; PCP Internal Medicine; Referring Provider Podiatrist Foot & Ankle Surgery; Visit Provider Podiatrist Foot & Ankle Surgery
DX: M79.671 Pain in right foot (principal); R60.0 Localized edema; M20.11 Hallux valgus (acquired), right foot; M19.071 Primary osteoarthritis, right ankle and foot; M60.9 Myositis, unspecified
CPT/HCPCS: 73720; A9579

== ENCOUNTER 2024-09-20 12:14 | Emergency (ER) | payer MEDICARE, SELFPAY ==
[2024-09-20 13:04] VITALS: BP 134/69; PULSE 81; RESP 17; TEMP 36.3; O2SAT 98; BMI 38.7
== END 2024-09-20 15:41 | disposition left against medical advice (07) ==
PROVIDERS: Emergency Provider Emergency Medicine; Family Provider Nurse Practitioner; PCP Internal Medicine
CPT/HCPCS: 99281